=== PATIENT | male | born 1945 | race Caucasian/White ===

== ENCOUNTER → 2017-09-29 | Outpatient (CLI) | payer OTHER ==
[~2017-09-29] MED LIST: METHACHOLINE KIT (J7674) INH
== END ==
LOC: M CARPUL 09:44
DX: R05 Cough (principal)
CPT/HCPCS: J7674

== ENCOUNTER 2023-09-27 14:26 | Emergency (ER) | payer OTHER ==
[~2023-09-27] VITALS: Ht 154.9 cm; Wt 57.8 kg
[2023-09-27 14:27] VITALS: BP 169/74; TEMP 97.7; O2SAT 98
== END 2023-09-27 15:19 | disposition left against medical advice (07) ==
LOC: M ED 14:26
DX: Z53.21 Procedure and treatment not carried out due to patient leaving prior to being seen by health care provider (principal)